=== PATIENT | female | born 2000 | race Caucasian/White ===

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

== ENCOUNTER → 2019-03-02 | Outpatient (CLI) | payer OTHER ==
[~2019-03-02] MED LIST changes: +METO5A PO; +Macrodantin100 MG PO; +NITR100; +Naprosyn500 MG PO; +PYRI100 PO; +Verotin-Gr Cap1 EACH PO; +Zofran Odt4 MG PO
== END | disposition home or self-care (01) ==
LOC: LAB SHORT 16:47 → LAB 16:47
DX: Z34.00 Encounter for supervision of normal first pregnancy, unspecified trimester (principal)
CPT/HCPCS: 87081; 87653

== ENCOUNTER 2019-03-21 06:14 | Inpatient (IN) | payer OTHER ==
[~2019-03-21] VITALS: Ht 154.9 cm; Wt 0.2 kg
[2019-03-21] MEDS ORDERED: OMEPRAZOLE20 MG (06:31)
[2019-03-21 06:34] LABS: BASOPHILS ABSOLUTE AUTO 0.08 K/mm3 (0.00-0.23); BASOPHILS PERCENT AUTO 1 % (0-2); EOSINOPHILS ABSOLUTE AUTO 0.16 K/mm3 (0.00-0.68); EOSINOPHILS PERCENT AUTO 1 % (0-6); Hematocrit 33.7 % (33.0-51.0); Hemoglobin 10.7 g/dL (11.5-16.0); IMMATURE GRAN ABSOLUTE AUTO 0.12 K/mm3 (0.00-0.10); IMMATURE GRAN PERCENT AUTO 1 % (0-1); LYMPHOCYTES ABSOLUTE AUTO 2.79 K/mm3 (0.84-5.20); LYMPHOCYTES PERCENT AUTO 20 % (21-46); MONOCYTES ABSOLUTE AUTO 1.04 K/mm3 (0.16-1.47); MONOCYTES PERCENT AUTO 7 % (4-13); Mean Corpuscular HGB Conc 31.8 g/dL (31.5-36.5); Mean Corpuscular Volume 88 fL (80-100); Mean Platelet Volume 12.9 fL (9.1-12.4); NEUTROPHILS ABSOLUTE AUTO 10.11 K/mm3 (1.96-9.15); NEUTROPHILS PERCENT AUTO 71 % (41-73); Platelet Count 287 K/mm3 (150-400); RDW Coefficient Variation 13.7 % (11.7-14.2); RDW Standard Deviation 44.1 fL (35.1-46.3); Red Blood Cell Count 3.82 M/mm3 (3.80-5.20)
[2019-03-22 06:00] LABS: Hematocrit 28.2 % (33.0-51.0); Hemoglobin 8.9 g/dL (11.5-16.0); Mean Corpuscular HGB 28.2 pg (26.0-34.0); Mean Corpuscular HGB Conc 31.6 g/dL (31.5-36.5); Mean Corpuscular Volume 89 fL (80-100); Mean Platelet Volume 13.4 fL (9.1-12.4); Platelet Count 222 K/mm3 (150-400); RDW Coefficient Variation 13.9 % (11.7-14.2); RDW Standard Deviation 45.1 fL (35.1-46.3); Red Blood Cell Count 3.16 M/mm3 (3.80-5.20); White Blood Cell Count 13.97 K/mm3 (4.00-11.30)
--- NOTE | 2019-03-22 07:42 | NUR ---
PT BREAST FEEDING NB, LINENS PASSED FOR SHOWER, ROOM CLEANED UP TRASH EMPTIED CALL LIGHT WITHIN REACH, INSTRUCTED MOM TO CALL IF SHE NEED TO USE BATHROOM HER LEGS WERE WEAK WHEN SHE AMBULATED LAST. WILL SHOWER AFTER BREAKFAST
--- NOTE | 2019-03-22 09:08 | NUR ---
REPT TO Ramakrishna RIVERA RN
--- NOTE | 2019-03-22 17:00 | NUR ---
CONSULT. HE IS ALMOST 24 HOURS OLD, STARTING TO WAKEN FOR FEEDINGS. MOM HAVING SOME PROBLEMS WITH GETTING AND MAINTAINING A GOOD LATCH. SHE IS ABLE TO DEMO SELF EBM. INSTRUCT/DEMO FOOTBALL POSITIONING, OBTAINING A DEEPER ASYMETRIC LATCH AND FURTHER WIDENING THE LATCH UNTIL COMFORTABLE. INSTRUCT IN CHANGES TO EXPECT DURING THE FIRST WEEK WITH BABY AND WITH FEEDINGS AND REFERRED TO BF [facility] AND PAGE 18 OF BF BOOKLET FOR PHOTOS AND INFORMATION. QUESTIONS ANSWERED. DEMO HOW TO UNLATCH BABY TO PREVENT NIPPLE DAMAGE.
[2019-03-22] MEDS ORDERED: IBUP800 PO (17:35)
--- NOTE | 2019-03-22 18:37 | NUR ---
feeding log pt was unsure about doing written feeding log after talking with her she found an hammad on her phone that is much easier to use for her. told pt to document feeds voids and stools for f/u visits. discharge instructions given with extra printed teaching on all baby care and care
== END 2019-03-22 18:45 | disposition home or self-care (01) | DRG 807 ==
LOC: BC 06:14
PROVIDERS: ADMIT Obstetrics & Gynecology
PROC: 10E0XZZ Delivery of Products of Conception, External Approach (ICD-10-PCS; principal; 2019-03-21)
PROC: 6A550ZT Pheresis of Cord Blood Stem Cells, Single (ICD-10-PCS; 2019-03-21)
PROC: 0UQGXZZ Repair Vagina, External Approach (ICD-10-PCS; 2019-03-21)
PROC: 3E033VJ Introduction of Other Hormone into Peripheral Vein, Percutaneous Approach (ICD-10-PCS; 2019-03-21)
PROC: 10907ZC Drainage of Amniotic Fluid, Therapeutic from Products of Conception, Via Natural or Artificial Opening (ICD-10-PCS; 2019-03-21)
DX: O71.4 Obstetric high vaginal laceration alone (principal); Z37.0 Single live birth; Z3A.39 39 weeks gestation of pregnancy; Z87.891 Personal history of nicotine dependence
CPT/HCPCS: 36415; 51702; 85025; 85027; 85460; 96372; J1885; J2405; J2590; J2790; J3010; J7120

== ENCOUNTER 2021-12-01 01:23 | Emergency (ER) | payer OTHER ==
[~2021-12-01] VITALS: Ht 154.9 cm; Wt 68.0 kg
[~2021-12-01 01:23] MED LIST changes: +IBUP800 PO; +OMEPRAZOLE20 MG
[2021-12-01] MEDS ORDERED: MELO7.5 PO (01:32)
[2021-12-01] MEDS ORDERED: CYMBALTA30 M2 PO (01:32)
[2021-12-01] MEDS ORDERED: BACITO TOP (02:56)
[2021-12-01] MEDS ORDERED: IBUP400 PO (02:57)
[2021-12-01] MEDS ORDERED: CYCL10 PO (02:57)
[2021-12-02] MEDS ORDERED: IBUP800 PO (15:49)
== END 2021-12-01 04:30 | disposition home or self-care (01) ==
LOC: ER 01:23
DX: S01.81XA Laceration without foreign body of other part of head, initial encounter (principal); M25.511 Pain in right shoulder; M54.2 Cervicalgia; F17.210 Nicotine dependence, cigarettes, uncomplicated; Z91.018 Allergy to other foods; V89.2XXA Person injured in unspecified motor-vehicle accident, traffic, initial encounter
CPT/HCPCS: 70450; 71046; 72125; 73030; 99284-25; A9270

== ENCOUNTER 2021-12-02 14:54 | Emergency (ER) | payer OTHER ==
[~2021-12-02] VITALS: Ht 157.5 cm; Wt 69.8 kg
[~2021-12-02 14:54] MED LIST changes: +BACITO TOP; +CYCL10 PO; +CYMBALTA30 M2 PO; +IBUP400 PO; +MELO7.5 PO
[2021-12-02] MEDS ORDERED: IBUP800 PO (15:49)
== END 2021-12-02 15:55 | disposition home or self-care (01) ==
LOC: ER 14:54
DX: S06.0X9A Concussion with loss of consciousness of unspecified duration, initial encounter (principal); S46.011A Strain of muscle(s) and tendon(s) of the rotator cuff of right shoulder, initial encounter; F17.210 Nicotine dependence, cigarettes, uncomplicated; Z91.018 Allergy to other foods; Z79.899 Other long term (current) drug therapy; V49.50XA Passenger injured in collision with unspecified motor vehicles in traffic accident, initial encounter
CPT/HCPCS: 99282

== ENCOUNTER 2022-01-02 18:26 | Emergency (ER) | payer OTHER ==
[~2022-01-02] VITALS: Ht 157.5 cm; Wt 73.5 kg
== END 2022-01-02 20:13 | disposition home or self-care (01) ==
LOC: ER 18:26
DX: S90.31XA Contusion of right foot, initial encounter (principal); W06.XXXA Fall from bed, initial encounter; Z91.018 Allergy to other foods; Z79.899 Other long term (current) drug therapy; F17.210 Nicotine dependence, cigarettes, uncomplicated
CPT/HCPCS: 29515; 73630; 99283-25

== ENCOUNTER → 2022-04-24 | Outpatient (CLI) | payer OTHER | END | disposition home or self-care (01) | LOC: LAB SHORT 15:22 → LAB 15:22 | DX: J02.9 Acute pharyngitis, unspecified (principal) | CPT/HCPCS: 87081 ==

== ENCOUNTER → 2022-05-25 | Outpatient (CLI) | payer OTHER ==
[~2022-05-25] MED LIST changes: +Pyridium100 MG PO
== END | disposition home or self-care (01) ==
LOC: LAB SHORT 13:11 → LAB 13:11
DX: J02.9 Acute pharyngitis, unspecified (principal)
CPT/HCPCS: 87081

== ENCOUNTER 2022-07-05 15:56 | Emergency (ER) | payer OTHER ==
[~2022-07-05] VITALS: Ht 154.9 cm; Wt 77.1 kg
[~2022-07-05 15:56] MED LIST changes: -Pyridium100 MG PO
[2022-07-05 16:21] LABS: BASOPHILS ABSOLUTE AUTO 0.04 K/mm3 (0.00-0.23); BASOPHILS PERCENT AUTO 1 % (0-2); EOSINOPHILS ABSOLUTE AUTO 0.11 K/mm3 (0.00-0.68); EOSINOPHILS PERCENT AUTO 1 % (0-6); Hematocrit 35.5 % (33.0-51.0); IMMATURE GRAN ABSOLUTE AUTO 0.01 K/mm3 (0.00-0.10); IMMATURE GRAN PERCENT AUTO 0 % (0-1); LYMPHOCYTES PERCENT AUTO 29 % (21-46); MONOCYTES ABSOLUTE AUTO 0.46 K/mm3 (0.16-1.47); MONOCYTES PERCENT AUTO 6 % (4-13); Mean Corpuscular HGB 30.2 pg (26.0-34.0); Mean Corpuscular HGB Conc 33.8 g/dL (31.5-36.5); Mean Corpuscular Volume 89 fL (80-100); Mean Platelet Volume 12.2 fL (9.1-12.4); NEUTROPHILS ABSOLUTE AUTO 5.28 K/mm3 (1.96-9.15); NEUTROPHILS PERCENT AUTO 64 % (41-73); Platelet Count 272 K/mm3 (150-400); RDW Coefficient Variation 12.6 % (11.7-14.2); RDW Standard Deviation 41.6 fL (35.1-46.3); Red Blood Cell Count 3.98 M/mm3 (3.80-5.20)
[2022-07-05 16:42] LABS: Albumin, Blood 3.9 g/dL (3.4-5.0); Bilirubin, Total 0.3 mg/dL (0.1-1.0); Bun/Creatinine Ratio 23.8 (12.0-20.0); Calcium, Blood 9.3 mg/dL (8.5-10.1); Creatinine, Blood 0.63 mg/dL (0.40-1.00); Globulin, Blood 3.8 g/dL (2.2-4.0); Potassium, Blood 3.8 mmol/L (3.5-5.5); Total Protein, Blood 7.7 g/dL (6.4-8.2)
[2022-07-05 17:23] LABS: Source, Urine Clean Catch
[2022-07-05 17:34] LABS: Appearance, Urine Cloudy (Clear); Bilirubin, Urine Neg (Neg); Blood, Urine 1+ (Neg); Color, Urine Amber (P-Yellow); Glucose Qualitative, Urine Neg (Neg); Ketones, Urine 1+ (Neg); Leukocyte Esterase, Urine Neg (Neg); Nitrite, Urine Pos (Neg); Protein, Urine Neg (Neg); Specific Gravity, Urine 1.025 (1.003-1.022); Urobilinogen, Urine NORM (Normal)
[2022-07-05 17:54] LABS: Bacteria Many /hpf; Squamous Epithelial Cells Mod /hpf (Few)
[2022-07-05] MEDS ORDERED: CEPH500 PO (21:00)
[2022-07-05] MEDS ORDERED: Pyridium100 MG PO (21:00)
== END 2022-07-05 21:36 | disposition home or self-care (01) ==
LOC: ER 15:56
PROVIDERS: Student in an Organized Health Care Education/Training Program
DX: N39.0 Urinary tract infection, site not specified (principal); Z91.018 Allergy to other foods; Z79.899 Other long term (current) drug therapy; Z87.891 Personal history of nicotine dependence
CPT/HCPCS: 74177; 80053; 81001; 81025; 83690; 85025; 87077; 87086; 87186; 96374; 99284-25; A9270; J0696; Q9967

== ENCOUNTER 2022-10-13 12:05 | Emergency (ER) | payer OTHER ==
[~2022-10-13 12:05] MED LIST changes: +Pyridium100 MG PO
[2022-10-13] MEDS ORDERED: PRENATAL TABLE1 EAC2 PO (15:25)
[2022-10-13] MEDS ORDERED: ONDA4ODT MM (16:43)
== END 2022-10-13 16:58 | disposition home or self-care (01) ==
DX: O26.891 Other specified pregnancy related conditions, first trimester (principal); R11.0 Nausea; O99.281 Endocrine, nutritional and metabolic diseases complicating pregnancy, first trimester; E86.0 Dehydration; O99.331 Smoking (tobacco) complicating pregnancy, first trimester; F17.210 Nicotine dependence, cigarettes, uncomplicated; Z3A.08 8 weeks gestation of pregnancy; Z91.018 Allergy to other foods; Z79.899 Other long term (current) drug therapy

== ENCOUNTER → 2022-10-23 | Outpatient (CLI) | payer OTHER ==
[~2022-10-23] MED LIST changes: +ONDA4ODT MM; +PRENATAL TABLE1 EAC2 PO
[2022-10-23 12:44] LABS: Source, Urine Clean Catch
[2022-10-23 15:14] LABS: U Amphetamine Screen Not Detected; U Barbituate Screen Not Detected; U Benzodiazapine Screen Not Detected; U Buprenorphine Screen Not Detected; U Cannabinoids Screen Not Detected; U Cocaine Screen Not Detected; U Methadone Screen Not Detected; U Methamphetamine Screen Not Detected; U Opiates Screen Not Detected; U Oxycodone Screen Not Detected; U Phencyclidine Screen Not Detected; U Propoxyphene Screen Not Detected
[2022-10-23 15:32] LABS: Bacteria Many /hpf; Mucus Heavy (0-Heavy); Red Blood Cells, Urine 0-2 /hpf (0-2); Squamous Epithelial Cells Many /hpf (Few)
== END | disposition home or self-care (01) ==
LOC: LAB SHORT 10:00
PROVIDERS: Obstetrics & Gynecology
DX: Z34.81 Encounter for supervision of other normal pregnancy, first trimester (principal)
CPT/HCPCS: 81015; 87086

== ENCOUNTER → 2022-11-06 | Outpatient (CLI) | payer OTHER ==
[2022-11-09 00:09] LABS: CHLAMYDIA TRACHOMATIS, NAA Negative (Negative)
== END | disposition home or self-care (01) ==
LOC: LAB SHORT 09:48
PROVIDERS: Obstetrics & Gynecology
DX: Z34.81 Encounter for supervision of other normal pregnancy, first trimester (principal)
CPT/HCPCS: 87491; 87591